=== PATIENT | female | born 1960 | race African-American/Black ===

== ENCOUNTER 2018-11-18 11:55 | Emergency (ER) | payer OTHER ==
[~2018-11-18] VITALS: Ht 287 cm; Wt 96.6 kg
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
[2018-11-18] MEDS ORDERED: HYDROCODONE/APAP 10/325MG 1 EA TABLET ONE (12:18)
[2018-11-18] MEDS ORDERED: ALBUTEROL FS 2.5 MG/3 ML VIAL.NEB NEB ONE (12:30)
[2018-11-18] MEDS ORDERED: IPRATROPIUM NEB FS 0.5 MG/2.5 ML AMPUL.NEB NEB ONE (12:30)
[2018-11-18] MEDS ORDERED: HYDROCODONE/APAP 10/325MG 1 EA TABLET PO ONE (12:30)
--- NOTE | 2018-11-18 12:36 | NUR ---
CALLED RT FOR BREATHING TX
[2018-11-18] MEDS ORDERED: IPRATROPIUM NEB FS 0.5 MG/2.5 ML AMPUL.NEB ONE (12:45)
[2018-11-18] MEDS ORDERED: ALBUTEROL FS 2.5 MG/3 ML VIAL.NEB ONE (12:45)
--- NOTE | 2018-11-18 13:46 | NUR ---
[facility] CALLED FOR HOMELESS RESOURCES/PLACEMENT
--- NOTE | 2018-11-18 14:06 | NUR ---
[facility] AT BEDSIDE FOR SW RESOURCES
[2018-11-18 14:07] VITALS: BP 105/85
--- NOTE | 2018-11-18 14:21 | NUR ---
Patient discharged to home in stable condition. Written and verbal after care instructions given. Patient verbalizes understanding of instruction.
== END 2018-11-18 14:23 | disposition home or self-care (01) ==
LOC: ER 12:00
DX: J44.1 Chronic obstructive pulmonary disease with (acute) exacerbation (principal); Z88.6 Allergy status to analgesic agent; M79.641 Pain in right hand; M79.662 Pain in left lower leg; R07.81 Pleurodynia; Z59.0 Homelessness; V89.9XXA Person injured in unspecified vehicle accident, initial encounter; Y93.89 Activity, other specified; Y92.89 Other specified places as the place of occurrence of the external cause; Y99.8 Other external cause status
CPT/HCPCS: 71100-TC; 73130-TC

== ENCOUNTER 2019-12-16 11:52 | Emergency (ER) | payer OTHER ==
[~2019-12-16] VITALS: Ht 165.1 cm; Wt 99.8 kg
--- NOTE | 2019-12-16 11:52 | NUR ---
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
[2019-12-16] MEDS ORDERED: NITROGLYCERIN 0.4 MG/TAB BOTTLE ONE (12:12)
[2019-12-16] MEDS ORDERED: NITROGLYCERIN 0.4 MG/TAB BOTTLE SL ONE (12:30)
[2019-12-16] MEDS ORDERED: IV NS 0.9% 500 ML BAG IV ONE (12:30)
[2019-12-16 12:50] LABS: BASOPHILS # (AUTO) 0.1 /CMM (0.0-0.2); BASOPHILS % (AUTO) 1.1 % (0.0-2.0); EOSINOPHILS % (AUTO) 4.2 % (0.0-6.0); HEMATOCRIT 44 % (33-45); HEMOGLOBIN 13.8 g/dL (11.5-14.8); LYMPHOCYTES # (AUTO) 4.2 /CMM (0.8-4.8); LYMPHOCYTES % (AUTO) 50.5 % (20.0-44.0); MEAN CORPUSCULAR HGB CONC 32 g/dl (31.0-36.0); MEAN CORPUSCULAR VOLUME 83 fL (82-100); MONOCYTES # (AUTO) 0.6 /CMM (0.1-1.30); MONOCYTES % (AUTO) 7.1 % (2.0-12.0); NEUTROPHILS # (AUTO) 3.1 /CMM (1.8-8.9); NEUTROPHILS % (AUTO) 37.1 % (43.0-81.0); PLATELET COUNT (AUTO) 387 /CMM (150-450); RED BLOOD CELL COUNT(AUTO) 5.26 MIL/uL (4.0-5.2); WHITE BLOOD COUNT (AUTO) 8.3 K/uL (4.3-11.0)
[2019-12-16 13:00] LABS: CARBON DIOXIDE 22 mmol/L (21-32); CHLORIDE 105 mmol/L (98-107); CREATININE 0.8 mg/dL (0.6-1.3); GLUCOSE 106 mg/dL (74-106); POTASSIUM 3.4 mmol/L (3.5-5.1); SODIUM SERUM 141 mmol/L (136-145); UREA NITROGEN, BLOOD 11 mg/dL (7-18)
[2019-12-16] MEDS ORDERED: METOCLOPRAMIDE HCL 10 MG/2 ML VIAL IV ONE (13:00)
[2019-12-16] MEDS ORDERED: diphenhydrAMINE HCL 50 MG/ML VIAL IV ONE (13:00)
[2019-12-16] MEDS ORDERED: IV NS 0.9% 250 ML IV ONE (13:16)
[2019-12-16] MEDS ORDERED: IOHEXOL-350 100 ML VIAL IV ONE (13:16)
[2019-12-16] MEDS ORDERED: CT SWABBABLE VALVE TRANS SET 1 EA INFUS.SET MC ONE (13:16)
[2019-12-16] MEDS ORDERED: diphenhydrAMINE HCL 50 MG/ML VIAL ONE (13:22)
[2019-12-16] MEDS ORDERED: METOCLOPRAMIDE HCL 10 MG/2 ML VIAL ONE (13:22)
[2019-12-16] MEDS ORDERED: LOSA50TA39 PO (13:35)
[2019-12-16] MEDS ORDERED: CLON0.3T PO (13:35)
[2019-12-16] MEDS ORDERED: HYDR-4076 PO (13:35)
[2019-12-16] MEDS ORDERED: HYDR10SY16 PO (13:35)
[2019-12-16] MEDS ORDERED: IPRA0.2S9 IH (13:35)
[2019-12-16] MEDS ORDERED: GABA-534 PO (13:35)
[2019-12-16] MEDS ORDERED: ALBU2.5V38 NEB (13:35)
[2019-12-16] MEDS ORDERED: HYDR-4384 PO (13:35)
[2019-12-16] MEDS ORDERED: HYDR-4354 PO (13:35)
[2019-12-16] MEDS ORDERED: IBUP-1953 PO (13:35)
[2019-12-16] MEDS ORDERED: OMEP20CA15 PO (13:35)
--- NOTE | 2019-12-16 13:50 | NUR ---
pt to ct
[2019-12-16] MEDS ORDERED: CLONIDINE HCL 0.1 MG TABLET PO ONE (15:30)
[2019-12-16] MEDS ORDERED: CLONIDINE HCL 0.1 MG TABLET ONE (15:39)
--- NOTE | 2019-12-16 16:00 | NUR ---
CALLED CALL THE CAR FOR TRANSPORT TO FACILITY. KEEP HANGING UP ON ME AND NO ANSWER. CALLED [facility] FOR TRANSPORT.
--- NOTE | 2019-12-16 16:13 | NUR ---
pt ok to be d/c home, calling for ambulance transport at this time
[2019-12-16] MEDS ORDERED: ACETAMINOPHEN ES 500 MG TABLET ONE (16:27)
[2019-12-16] MEDS ORDERED: ACETAMINOPHEN ES 500 MG TABLET PO ONE (16:30)
--- NOTE | 2019-12-16 16:54 | NUR ---
tried to give report to afua at [facility]; pt's bp is too high. will talk to his DON and get back to us.
--- NOTE | 2019-12-16 16:57 | NUR ---
CALLED [facility] TO EFREN JEREZ ETA 15 MINUTES.
[2019-12-16] MEDS ORDERED: hydrALAZINE HCL IV 20 MG VIAL ONE ×2 (16:59→17:40)
[2019-12-16] MEDS ORDERED: hydrALAZINE HCL IV 20 MG VIAL IV ONE ×2 (17:00→18:00)
[2019-12-16 18:00] VITALS: BP 150/95
--- NOTE | 2019-12-16 18:10 | NUR ---
spoke to afua, nurse at [facility]; per BERTA carranza-- they will accept patient despite high blood pressure, pt is asymptomatic, -cp, -waggoner, -n/v per dr. arana, labs and ct scan negative. report given to [facility] ambulance staff, pt bp is to an acceptable level, see intervention notes. pt in stable condition, dc paperwork given. pt left via gurney.
== END 2019-12-16 18:17 | disposition home or self-care (01) ==
LOC: ER 12:02
DX: I10 Essential (primary) hypertension (principal); R51 Headache; R07.89 Other chest pain; Z79.899 Other long term (current) drug therapy; Z88.6 Allergy status to analgesic agent
CPT/HCPCS: 36415; 70450; 71045; 71275; 80048; 84484; 85025; 93005; 96374; 96375; 96376; 99285; J0360 ×2; J1200; J2765; J7030; J7040; J7050; Q9967